=== PATIENT | female | born 1985 | race Caucasian/White ===

== ENCOUNTER 2016-09-29 07:24 | Inpatient (IN) | payer OTHER ==
[~2016-09-29] VITALS: Ht 172.7 cm; Wt 76.6 kg
[2016-09-29] VITALS (27 sets, daily range): BP systolic 112–162; BP diastolic 63–95
[~2016-09-29 07:24] MED LIST: FLEXERIL5 MG PO; NAPROSYN500 MG PO; PREDNISONE10 M1 PO
[2016-09-29] MEDS ORDERED: PROZAC40 MG PO (07:43)
[2016-09-29] MEDS ORDERED: PRENATAL TABLE1 EAC3 PO (07:43)
[2016-09-29 09:07] LABS: EOSINOPHIL (%) 0.8 % (0-5); EOSINOPHIL COUNT 0.1 K/uL (0-0.3); HEMATOCRIT 33.9 % (36.0-46.0); IMMATURE GRANULOCYTE (%) 1.9 % (0.0-0.7); IMMATURE GRANULOCYTE COUNT 0.2 K/uL; LYMPHOCYTE COUNT 1.3 K/uL (1.0-2.8); MCH 26.9 PG (29.0-34.0); MCHC 32.2 G/DL (30.0-36.0); MCV 83.7 FL (83-99); MEAN PLAT.VOLUME 11.5 uM^3 (9.5-12.4); MONOCYTE (%) 6.6 % (3-12); MONOCYTE COUNT 0.6 K/uL (0-0.8); NEUTROPHIL (%) 76.5 % (45-76); NEUTROPHIL COUNT 7.3 K/uL (1.8-6.4); PLATELET COUNT 185 K/uL (156-360); RBC DIS.WIDTH-CV 14.2 % (11.8-14.6); RBC DIS.WIDTH-SD 43.6 % (39-53); RED BLOOD COUNT 4.05 M/uL (3.80-5.20); WHITE BLOOD COUNT 9.6 K/uL (4.1-10.2)
[2016-09-30 03:31] VITALS: BP 125/57
[2016-09-30 07:13] LABS: EOSINOPHIL (%) 0.6 % (0-5); EOSINOPHIL COUNT 0.1 K/uL (0-0.3); HEMATOCRIT 28.4 % (36.0-46.0); IMMATURE GRANULOCYTE (%) 1.4 % (0.0-0.7); IMMATURE GRANULOCYTE COUNT 0.1 K/uL; LYMPHOCYTE COUNT 1.6 K/uL (1.0-2.8); MCH 27.8 PG (29.0-34.0); MCHC 32.7 G/DL (30.0-36.0); MEAN PLAT.VOLUME 11.3 uM^3 (9.5-12.4); MONOCYTE (%) 6.6 % (3-12); MONOCYTE COUNT 0.7 K/uL (0-0.8); NEUTROPHIL (%) 74.8 % (45-76); NEUTROPHIL COUNT 7.5 K/uL (1.8-6.4); PLATELET COUNT 138 K/uL (156-360); RBC DIS.WIDTH-CV 14.4 % (11.8-14.6); RBC DIS.WIDTH-SD 44.4 % (39-53); RED BLOOD COUNT 3.34 M/uL (3.80-5.20)
[2016-09-30 07:50] VITALS: BP 132/73
[2016-09-30 11:30] VITALS: BP 148/73
[2016-09-30 16:15] VITALS: BP 131/81
[2016-09-30 19:33] VITALS: BP 136/84
[2016-09-30] MEDS ORDERED: Tylenol Extra Streng PO (19:48)
[2016-09-30] MEDS ORDERED: IBUPROFEN800 MG PO (19:49)
== END 2016-09-30 20:15 | disposition home or self-care (01) | DRG 775 ==
LOC: LDRP-OP 07:24 → 2WEST 07:25 → LDRP-OP 13:33 → 2WEST 16:15
PROVIDERS: Advanced Practice Midwife; Obstetrics & Gynecology
DX: O13.3 Gestational [pregnancy-induced] hypertension without significant proteinuria, third trimester (principal); O76 Abnormality in fetal heart rate and rhythm complicating labor and delivery; O77.0 Labor and delivery complicated by meconium in amniotic fluid; O69.1XX0 Labor and delivery complicated by cord around neck, with compression, not applicable or unspecified; O70.0 First degree perineal laceration during delivery; O99.334 Smoking (tobacco) complicating childbirth; F17.210 Nicotine dependence, cigarettes, uncomplicated; O99.344 Other mental disorders complicating childbirth; O99.02 Anemia complicating childbirth; D62 Acute posthemorrhagic anemia; Z3A.40 40 weeks gestation of pregnancy; Z37.0 Single live birth; F41.9 Anxiety disorder, unspecified; F31.9 Bipolar disorder, unspecified
CPT/HCPCS: 85025; C1755; J3010; J7120

== ENCOUNTER 2017-04-03 05:33 | Day surgery (SDC) | payer OTHER ==
[~2017-04-03] VITALS: Ht 172.7 cm; Wt 66.2 kg
[~2017-04-03 05:33] MED LIST changes: +IBUPROFEN800 MG PO; +PRENATAL TABLE1 EAC3 PO; +PROZAC20 MG PO; +TYLENOL PM PO; +Tylenol Extra Streng PO; +VENTOLIN HFA18 GM IH
[2017-04-03 06:00] VITALS: BP 114/74
[2017-04-03] MEDS ORDERED: PERCOCET 5/31 TABLET PO (07:58)
[2017-04-03 09:00] VITALS: BP 124/73
[2017-04-03 09:53] VITALS: BP 116/71
== END 2017-04-03 09:57 | disposition home or self-care (01) ==
LOC: SDC 05:33 → EDSTATUS 08:46 → 2SOUTH 08:46 → SDC 08:50
PROC: 0UL74DZ Occlusion of Bilateral Fallopian Tubes with Intraluminal Device, Percutaneous Endoscopic Approach (ICD-10-PCS; principal; 2017-04-03)
DX: Z30.2 Encounter for sterilization (principal); J45.909 Unspecified asthma, uncomplicated; F41.9 Anxiety disorder, unspecified; F17.210 Nicotine dependence, cigarettes, uncomplicated
CPT/HCPCS: J0690; J1050; J1100; J1885; J2250; J2405; J3010

== ENCOUNTER 2018-01-22 20:41 | Emergency (ER) | payer OTHER ==
[~2018-01-22] VITALS: Ht 165.1 cm; Wt 66.0 kg
[~2018-01-22 20:41] MED LIST changes: +PERCOCET 5/31 TABLET PO
[2018-01-22 21:52] LABS: BASOPHIL (%) 0.2 % (0-1); EOSINOPHIL (%) 1.3 % (0-5); EOSINOPHIL COUNT 0.1 K/uL (0-0.3); HEMATOCRIT 40.9 % (36.0-46.0); HEMOGLOBIN 13.9 G/DL (11.9-15.5); IMMATURE GRANULOCYTE (%) 0.4 % (0.0-0.7); LYMPHOCYTE (%) 22.4 % (15-42); LYMPHOCYTE COUNT 2.3 K/uL (1.0-2.8); MCH 29.9 PG (29.0-34.0); MONOCYTE COUNT 0.7 K/uL (0-0.8); NEUTROPHIL (%) 68.7 % (45-76); NEUTROPHIL COUNT 6.9 K/uL (1.8-6.4); PLATELET COUNT 256 K/uL (156-360); RBC DIS.WIDTH-CV 13.2 % (11.8-14.6); RBC DIS.WIDTH-SD 42.7 % (39-53); RED BLOOD COUNT 4.65 M/uL (3.80-5.20); WHITE BLOOD COUNT 10.1 K/uL (4.1-10.2)
[2018-01-22 22:00] LABS: ALBUMIN 4.1 g/dL (3.2-4.8); CHLORIDE 105 mEq/L (99-109); POTASSIUM 3.9 mEq/L (3.7-5.4); SODIUM 139 mEq/L (136-147)
[2018-01-22 22:01] LABS: MAGNESIUM 2.6 mg/dL (1.3-2.7)
[2018-01-22 22:02] LABS: GLUCOSE 100 mg/dL (70-99)
[2018-01-22 22:03] LABS: TOTAL PROTEIN 6.8 g/dL (6.4-8.3)
[2018-01-22 22:04] LABS: TOTAL BILIRUBIN 0.3 mg/dL (0.0-1.0)
[2018-01-22 22:06] LABS: ALKALINE PHOSPHATASE 86 IU/L (3-129); CREATININE 0.9 mg/dL (0.6-1.3); GFR ESTIMATE (CALCULATED) > 59 mL/min/
[2018-01-22 22:07] LABS: UREA NITROGEN (BUN) 15 mg/dL (9-23)
[2018-01-22 22:08] LABS: AST (GOT) 14 IU/L (2-34)
[2018-01-22 22:09] LABS: ALT (GPT) 12 IU/L (3-49)
[2018-01-22 22:50] LABS: QUANTITATIVE HCG < 4.0 MIU/ML
[2018-01-22 23:58] VITALS: BP 113/71
== END 2018-01-22 23:59 | disposition home or self-care (01) ==
LOC: EME → EDBD 20:41 → EME 20:41
PROVIDERS: Emergency Medicine
DX: R00.2 Palpitations (principal); R42 Dizziness and giddiness; I48.91 Unspecified atrial fibrillation; I45.10 Unspecified right bundle-branch block; F15.90 Other stimulant use, unspecified, uncomplicated; J45.909 Unspecified asthma, uncomplicated; F17.200 Nicotine dependence, unspecified, uncomplicated
CPT/HCPCS: 80053; 83735; 84702; 85025; 93005; 99281; 99285; J7120